=== PATIENT | male | born 1935 | race Caucasian/White ===

== ENCOUNTER → 2020-09-17 | Outpatient (CLI) | payer OTHER ==
[~2020-09-17] MED LIST: ASPIRIN325 MG PO; CLONIDINE HCL0.1 MG PO; CLONIDINE HCL0.3 MG PO; COVID-19 VACC, MRNA(MODERNA)/PF 100 MCG/0.5 ML VIAL IM ONE; HYDROCHLOROTHIA25 MG PO; LEVOTHYROXINE88 MCG PO; LIPITOR20 MG PO; NORVASC10 MG PO; PEPCID20 MG PO
== END ==
LOC: VACCPMC 18:30
DX: Z23 Encounter for immunization (principal); Z20.828 Contact with and (suspected) exposure to other viral communicable diseases

== ENCOUNTER → 2020-10-20 | Outpatient (CLI) | payer OTHER | END | DRG 951 | LOC: VACCPMC 09:13 | DX: Z23 Encounter for immunization (principal); Z20.822 Contact with and (suspected) exposure to COVID-19 | CPT/HCPCS: 0012A; 91301 ==